=== PATIENT | female | born 1955 | race Caucasian/White ===

== ENCOUNTER → 2016-09-29 | Outpatient (CLI) | payer MEDICAID ==
[~2016-09-29] MED LIST: EFFEXOR XR75 MG PO; FERROUS SULFATE PO; FOLIC ACID1 MG PO; LASIX20 MG PO; POTASSIUM CHLO10 MEQ PO; PRILOSEC PO
--- NOTE | ~2016-09-29 | US85 ---
[facility] A Service of [facility] RADIOLOGY TEXT RESULTS PATIENT: RUIZ SOLANO LOCATION: CNIV : 59 UNIT #: [id number] AGE: [address]: Brendan Solo MD SEX: F ORDER DR: [id number] [facility] [address] [place], [place] [address] [id number] O MR#: [id number] Acc #: [id number] NAME: RUIZ SOLANO : 1955 SEX: F STUDY DATE/TIME: 09/29/2016 17:02 UNIT: CNIV ROOM: STUDY DESCRIPTION: [facility] or [facility] Attending Physician: Brendan Solo M.D., Ph.D. Referring Physician: Brendan Solo M.D., Ph.D. Ordering Physician: Brendan Solo M.D., Ph.D. Primary Care Physician: Elieser Lagos M.D. MEDICAL IMAGING REPORT This report is preliminary unless electronic signature is present EXAM Right lower extremity venous duplex 09/29/2016 HISTORY Right lower extremity pain for 1 month. Evaluate for deep vein thrombosis. History of previous lower extremity deep vein thrombosis 2.5 years ago. History of lymphoma. TECHNIQUE Venous ultrasound examination of the right lower extremity was performed using grayscale, spectral Doppler and color flow Doppler imaging. FINDINGS The examination is negative. There is no evidence of right lower extremity deep venous thrombus from the groin to the lower calf. Visualized greater saphenous vein is also patent. IMPRESSION Negative examination. No evidence of right lower extremity deep venous thrombosis. Dictated by... Maico Roberson M.D. THIS IS AN ELECTRONICALLY VERIFIED REPORT Maico Roberson M.D. at 09/30/2016 8:04 AM SABRINA/adal TD: 09/30/2016 06:55 JOB #: [id number] [facility] A Service of [facility] RADIOLOGY TEXT RESULTS PATIENT: RUIZ SOLANO LOCATION: CNIV : 59 UNIT #: [id number] AGE: [address]: Brendan Solo MD SEX: F ORDER DR: MEDICAL IMAGING REPORT COPY
== END | disposition home or self-care (01) ==
LOC: CNIV 16:40
DX: D50.8 Other iron deficiency anemias (principal); K90.9 Intestinal malabsorption, unspecified
CPT/HCPCS: 93971

== ENCOUNTER → 2017-02-27 | Outpatient (CLI) | payer BC ==
--- NOTE | ~2017-02-27 | CR63 ---
[facility] A Service of [facility] RADIOLOGY TEXT RESULTS PATIENT: RUIZ SOLANO LOCATION: [facility] : 59 UNIT #: [id number] AGE: [address]: Brendan Solo MD SEX: F ORDER DR: [id number] [facility] [address] [place], [place] [address] [id number] O MR#: [id number] #: [id number] NAME: RUIZ SOLANO : 1955 SEX: F STUDY DATE/TIME: 02/27/2017 15:03 UNIT: [facility] ROOM: STUDY DESCRIPTION: CR Chest 2 View Attending Physician: Brendan Solo M.D., Ph.D. Referring Physician: Brendan Solo M.D., Ph.D. Ordering Physician: Brendan Solo M.D., Ph.D. Primary Care Physician: Elieser Lagos M.D. MEDICAL IMAGING REPORT This report is preliminary unless electronic signature is present EXAM PA and lateral chest. HISTORY Shortness of air starting today. FINDINGS PA and lateral examination of the chest upright shows a good expansion of the parenchyma with a normal distribution of the pulmonary vascularity. There is no indication of congestion, effusion, infiltrate, tumor, or nodular density. The pleural reflections and diaphragmatic contours are normal. The cardiac silhouette and mediastinal anatomy is within normal limits. IMPRESSION Normal chest. STAT * RESULT Dictated by... Domenico Castellano M.D. THIS IS AN ELECTRONICALLY VERIFIED REPORT Domenico Castellano M.D. at 02/27/2017 3:58 PM ELIA/jewels TD: 02/27/2017 15:47 JOB #: [id number] MEDICAL IMAGING REPORT [facility] A Service of [facility] RADIOLOGY TEXT RESULTS PATIENT: RUIZ SOLANO LOCATION: [facility] : 59 UNIT #: [id number] AGE: [address]: Brendan Solo MD SEX: F ORDER DR: Page 1 of 1 COPY
== END | disposition home or self-care (01) ==
LOC: CRAD 14:40
DX: R06.02 Shortness of breath (principal)
CPT/HCPCS: 71020